=== PATIENT | female | born 1995 | race Caucasian/White ===

== ENCOUNTER → 2017-03-07 | Outpatient (CLI) | payer OTHER ==
[2017-03-11 10:27] LABS: CHLAMYDIA TRACH RNA*** DETECTED (NOT DETECTED); GC (NEIS GONORRHOEAE)RNA** NOT DETECTED (NOT DETECTED)
== END | disposition home or self-care (01) ==
LOC: C.LABSPEC 13:28
PROVIDERS: ATTEND Obstetrics & Gynecology
DX: Z01.419 Encounter for gynecological examination (general) (routine) without abnormal findings (principal)

== ENCOUNTER → 2017-03-07 | Outpatient (CLI) | payer OTHER | END | disposition home or self-care (01) | LOC: C.PAPS 13:55 | PROVIDERS: ATTEND Obstetrics & Gynecology | DX: Z01.419 Encounter for gynecological examination (general) (routine) without abnormal findings (principal) ==

== ENCOUNTER → 2017-04-10 | Outpatient (CLI) | payer OTHER ==
[2017-04-10 17:55] LABS: URINE APPEARANCE CLOUDY (CLEAR); URINE BILIRUBIN NEG (NEG); URINE COLOR DK YELLOW; URINE EPITHELIAL CELL AUTO >30 /lpf (0-5); URINE NITRITE NEG (NEG); URINE SPECIFIC GRAVITY 1.022 (1.000-1.030); UROBILINOGEN NEG (NEG)
[2017-04-10 18:11] LABS: MANUAL MICROSCOPIC REQUIRED? NO; REVIEW REQ? YES
[2017-04-13 01:43] LABS: CHLAMYDIA TRACH RNA*** NOT DETECTED (NOT DETECTED); GC (NEIS GONORRHOEAE)RNA** NOT DETECTED (NOT DETECTED)
== END | disposition home or self-care (01) ==
LOC: C.LABPBG 10:41
PROVIDERS: ATTEND Family Medicine
DX: Z86.19 Personal history of other infectious and parasitic diseases (principal); R35.0 Frequency of micturition; R39.89 Other symptoms and signs involving the genitourinary system

== ENCOUNTER 2017-04-15 12:58 | Inpatient (IN) | payer OTHER ==
[~2017-04-15] VITALS: Ht 167.6 cm; Wt 62.4 kg
[2017-04-15] MEDS ORDERED: BCPILLS PO (13:18)
[2017-04-15] MEDS ORDERED: CIPR1TAB10 PO (13:18)
[2017-04-15] MEDS ORDERED: KETOROLAC TROMETHAMINE 30 MG/ML VIAL IV STA (13:35)
[2017-04-15] MEDS ORDERED: ONDANSETRON INJ 2 MG/ML 2 ML VIAL IV STA (13:35)
[2017-04-15 13:51] LABS: BASO % 0.2 %; BASO ABS # 0.03 K/uL (0-0.2); COMPLETE YES; EOS % 0.1 %; HEMATOCRIT 39.5 % (37-47); IG% 0.3 %; LYMPH % 8.9 %; LYMPH ABS # 1.17 K/uL (1.2-3.4); MEAN CELL VOLUME 91.2 fL (80-100); MEAN CORPUSCULAR HEMOGLOBIN 32.3 pg (25-34); MEAN CORPUSCULAR HGB CONC 35.4 g/dl (32-36); MEAN PLATELET VOLUME 9.7 fL (7.4-10.4); MONO % 8.6 %; NEUT % 81.9 %; PLATELET COUNT 272 K/uL (130-400); RED BLOOD COUNT 4.33 M/uL (4.2-5.4); WHITE BLOOD COUNT 13.08 K/uL (4.8-10.8)
[2017-04-15 14:01] LABS: URINE APPEARANCE CLEAR (CLEAR); URINE BILIRUBIN NEG (NEG); URINE COLOR YELLOW; URINE EPITHELIAL CELL AUTO >30 /lpf (0-5); URINE NITRITE NEG (NEG); URINE SPECIFIC GRAVITY 1.012 (1.000-1.030); UROBILINOGEN NEG (NEG); ZZUR CULT IF INDIC CLEAN CATCH YES
[2017-04-15 14:08] LABS: BUN/CREATININE RATIO 12.7 (10-20); CALCIUM 9.3 mg/dl (8.5-10.1); CREATININE 2.45 mg/dl (0.60-1.20); MANUAL MICROSCOPIC REQUIRED? NO; POTASSIUM 3.7 mmol/L (3.5-5.1); REVIEW REQ? YES
[2017-04-15] MEDS ORDERED: CEFTRIAXONE SOD INJ 1 GM ADDVIAL IV STA (14:56)
--- NOTE | 2017-04-15 15:30 | DIAGNOSTIC IMAGING REPORT ---
ABD/PELVIS NO IV OR ORAL CONT CLINICAL HISTORY: 21 years-old Female presenting with Cr 2.45, bilateral flank pain, nausea and vomiting. TECHNIQUE: Multidetector CT of the abdomen and pelvis was performed without the use of intravenous contrast. IV contrast: None. A dose lowering technique was used consistent with the principles of ALARA (as low as reasonably achievable). COMPARISON: None. CT DOSE (mGy.cm): The estimated cumulative dose is 329.78 mGy.cm. FINDINGS: Ssds Mk 2 Advanced Operator topogram: Unremarkable. Lung bases: Lungs and pleural spaces clear. Normal heart size. No pericardial or pleural effusion. Liver: Normal morphology. Normal density. Biliary: No gross biliary ductal dilatation allowing for noncontrast technique. Normal gallbladder. Pancreas: Mild parenchymal atrophy. Spleen: Noncontrast. Splenule noted. Adrenal glands: Normal noncontrast appearance. Kidneys and ureters: Normal noncontrast appearance of the renal parenchyma. Mild perinephric fat stranding, right greater than left. Few punctate foci of vague hyperdensity in the left kidney may suggest developing renal calculi (for example series 3 image 116). No hydronephrosis. Ureters are nondilated, poorly visualized in their distal portions. Bladder: Mild circumferential bladder wall thickening. No perivesicular fat stranding. Multiple pelvic phleboliths. Pelvic organs: Uterus and ovaries normal. Bowel: Normal appendix. No bowel obstruction. Peritoneal cavity: No free fluid or intraperitoneal gas. Lymph nodes: No gross lymphadenopathy allowing for noncontrast technique. Vasculature: Normal noncontrast appearance. Abdominal wall: Normal. Musculoskeletal: Normal. IMPRESSION: 1. Mild perinephric fat stranding is unexpected in a patient of this age. This could relate to aggressive volume resuscitation, although pyelonephritis could also have this appearance. Suggestion of mild circumference of bladder wall thickening. Correlate with urinalysis to exclude infection. 2. No nephrolithiasis at this time, although there is suggestion of a few punctate foci of vague hyperdensity in the left kidney that may suggest developing renal calculi. No hydronephrosis. Electronically signed by: Gerber Molina M.D. 04/15/2017 3:28 PM Dictated Date/Time: 04/15/2017 3:24 PM
--- NOTE | 2017-04-15 15:31 | DIAGNOSTIC IMAGING REPORT ---
RETROPERITONEAL COMPLETE CLINICAL HISTORY: 21 years-old Female presenting with Bilateral flank pain. TECHNIQUE: Real-time grayscale and limited color Doppler ultrasound imaging of the kidneys and bladder was performed. COMPARISON: None. FINDINGS: Right kidney: Normal echogenicity. Right kidney measures 11 cm. No hydronephrosis. Small amount of free fluid adjacent to the lower pole of the right kidney. No commencing evidence of calculus or mass. Normal perfusion. Left kidney: Normal echogenicity. Left kidney measures 11 cm. No hydronephrosis. No convincing evidence of calculus or mass. Normal perfusion. Bladder: Mild circumferential bladder wall thickening suggested, allowing for underdistention. Bilateral ureteral jets not visualized. Other: None. IMPRESSION: 1. Small amount of fluid adjacent to the right kidney. Especially given the presence of mild circumference of bladder wall thickening, this could suggest pyelonephritis in the appropriate clinical setting. Correlate with urinalysis. Electronically signed by: Gerber Molina M.D. 04/15/2017 3:30 PM Dictated Date/Time: 04/15/2017 3:29 PM
--- NOTE | 2017-04-15 17:07 | EMERGENCY ROOM VISIT NOTE ---
History First contact with patient: 13:17 Chief Complaint: FLANK PAIN Stated Complaint: LOW BACK PAIN, NAUSEA, VOMITING History of Present Illness The patient is a 21 year old female who presents to the Emergency Room with complaints of bilateral flank pain, nausea and vomiting. The patient reports that she has been dealing with recurrent urinary tract infections over the past 2-3 months the patient was initially seen at the [facility] urgent care center on 03/22/17, with culture showing an Escherichia coli infection. She was started on Bactrim DS antibiotics. When the patient developed recurrent symptoms within a week, she was provided a prescription for another round of Bactrim DS antibiotics. She was then seen by her PCP and provided a prescription for Cipro. She had a repeat culture performed on 04/10/17 that was normal. She now reports recurrent discomfort, rated a 10 out of 10. She has taken ibuprofen for the pain, however vomited her medicine. The patient is sexually active, and denies any recent dyspareunia or vaginal discharge. She has not noticed any blood in the urine. No diarrhea or constipation. She denies any pain extending into the left lower or right lower quadrants. She denies any prior history of kidney disease, kidney stones or pyelonephritis. The patient denies . Last menstruation was 3 weeks ago, and denies any history of dysmenorrhea. Review of Systems HEENT: Denies dizziness, visual problems, hearing loss, tinnitus. Denies difficulty swallowing or oral lesions. PULMONARY: Denies cough, shortness of breath, sputum production or hemoptysis. CARDIOVASCULAR: Denies chest pain, palpitations, dyspnea on exertion, orthopnea or peripheral edema. GASTROINTESTINAL: Denies diarrhea or constipation, otherwise see history of present illness. GENITOURINARY: Reports dysuria, frequency, urgency and nausea/vomiting. NEUROLOGIC: Denies history of epilepsy, CVA, TIA or chronic headaches. MUSCULOSKELETAL: Denies history of joint tenderness/swelling. SKIN: Denies rashes or lesions. PSYCHIATRIC: Denies history of depression or mental illness. ENDOCRINE: Denies history of diabetes or thyroid disorders. Past Medical/Surgical History Medical Problems: (1) SALMA (acute kidney injury) (2) No significant past medical history Surgical Problems: (1) No history of previous surgery Family History FH: diabetes mellitus FH: heart disease FH: hypertension Social History Smoking Status: Never Smoker Alcohol Use: none Marital Status: single Housing Status: lives with family Occupation Status: employed Current/Historical Medications Scheduled Control Pills ( Control Pills), 1 TAB PO DAILY Ciprofloxacin Hcl (Cipro), 500 MG PO BID Physical Exam Vital Signs Date Time Temp Pulse Resp B/P (MAP) Pulse Ox O2 Delivery O2 Flow Rate FiO2 04/15/17 13:04 36.8 92 18 150/81 99 Room Air Physical Exam CONSTITUTIONAL: Healthy and well nourished. Alert and oriented X 3 with positive affect. Patient does not appear acutely ill or toxic. HEENT: Normocephalic, atraumatic. Pupils equal, round and reactive. No conjunctival injection or scleral icterus. NECK: Full active range of motion without discomfort. RESPIRATORY: Clear to auscultation bilaterally with no wheezing, crackles, rhonchi or stridor. CARDIOVASCULAR: Regular rate and rhythm with no murmurs, rubs or gallops. GASTROINTESTINAL: Bowel sounds present in all quadrants. Should has a mildly positive CVA tenderness, left worse than right. Negative McBurney's point tenderness. No abdominal rigidity, guarding or rebound. MUSCULOSKELETAL: Full range of motion of all joints without discomfort. INTEGUMENTARY: No rash or other significant dermatologic conditions noted. HEMATOLOGIC: No ecchymosis or petechiae noted. NEUROLOGIC: No focal neurologic deficits noted. Medical Decision & Procedures ER Provider Diagnostic Interpretation: Retroperitoneal ultrasound shows the following: RETROPERITONEAL COMPLETE CLINICAL HISTORY: 21 years-old Female presenting with Bilateral flank pain. TECHNIQUE: Real-time grayscale and limited color Doppler ultrasound imaging of the kidneys and bladder was performed. COMPARISON: None. FINDINGS: Right kidney: Normal echogenicity. Right kidney measures 11 cm. No hydronephrosis. Small amount of free fluid adjacent to the lower pole of the right kidney. No commencing evidence of calculus or mass. Normal perfusion. Left kidney: Normal echogenicity. Left kidney measures 11 cm. No hydronephrosis. No convincing evidence of calculus or mass. Normal perfusion. Bladder: Mild circumferential bladder wall thickening suggested, allowing for underdistention. Bilateral ureteral jets not visualized. Other: None. IMPRESSION: 1. Small amount of fluid adjacent to the right kidney. Especially given the presence of mild circumference of bladder wall thickening, this could suggest pyelonephritis in the appropriate clinical setting. Correlate with urinalysis. Noncontrast CT of the abdomen and pelvis does not show any obstructing calculi. Radiologist report is as follows: ABD/PELVIS NO IV OR ORAL CONT CLINICAL HISTORY: 21 years-old Female presenting with Cr 2.45, bilateral flank pain, nausea and vomiting. TECHNIQUE: Multidetector CT of the abdomen and pelvis was performed without the use of intravenous contrast. IV contrast: None. A dose lowering technique was used consistent with the principles of ALARA (as low as reasonably achievable). COMPARISON: None. CT DOSE (mGy.cm): The estimated cumulative dose is 329.78 mGy.cm. FINDINGS: Transfer Driver topogram: Unremarkable. Lung bases: Lungs and pleural spaces clear. Normal heart size. No pericardial or pleural effusion. Liver: Normal morphology. Normal density. Biliary: No gross biliary ductal dilatation allowing for noncontrast technique. Normal gallbladder. Pancreas: Mild parenchymal atrophy. Spleen: Noncontrast. Splenule noted. Adrenal glands: Normal noncontrast appearance. Kidneys and ureters: Normal noncontrast appearance of the renal parenchyma. Mild perinephric fat stranding, right greater than left. Few punctate foci of vague hyperdensity in the left kidney may suggest developing renal calculi (for example series 3 image 116). No hydronephrosis. Ureters are nondilated, poorly visualized in their distal portions. Bladder: Mild circumferential bladder wall thickening. No perivesicular fat stranding. Multiple pelvic phleboliths. Pelvic organs: Uterus and ovaries normal. Bowel: Normal appendix. No bowel obstruction. Peritoneal cavity: No free fluid or intraperitoneal gas. Lymph nodes: No gross lymphadenopathy allowing for noncontrast technique. Vasculature: Normal noncontrast appearance. Abdominal wall: Normal. Musculoskeletal: Normal. IMPRESSION: 1. Mild perinephric fat stranding is unexpected in a patient of this age. This could relate to aggressive volume resuscitation, although pyelonephritis could also have this appearance. Suggestion of mild circumference of bladder wall thickening. Correlate with urinalysis to exclude infection. 2. No nephrolithiasis at this time, although there is suggestion of a few punctate foci of vague hyperdensity in the left kidney that may suggest developing renal calculi. No hydronephrosis. Laboratory Results Test 04/15/17 13:40 Prothrombin Time 10.7 SECONDS (9.0-12.0) Prothromb Time International Ratio 1.0 (0.9-1.1) Activated Partial Thromboplast Time 27.5 SECONDS (21.0-31.0) Partial Thromboplastin Ratio 1.1 Urine Color YELLOW Urine Appearance CLEAR (CLEAR) Urine pH 6.0 (4.5-7.5) Urine Specific [place] 1.012 (1.000-1.030) Urine Protein 3+ (NEG) Urine Glucose (UA) NEG (NEG) Urine Ketones NEG (NEG) Urine Occult Blood 3+ (NEG) Urine Nitrite NEG (NEG) Urine Bilirubin NEG (NEG) Urine Urobilinogen NEG (NEG) Urine Leukocyte Esterase TRACE (NEG) Urine WBC (Auto) 10-30 /hpf (0-5) Urine RBC (Auto) >30 /hpf (0-4) Urine Hyaline Casts (Auto) 5-10 /lpf (0-5) Urine Epithelial Cells (Auto) >30 /lpf (0-5) Urine Bacteria (Auto) 1+ (NEG) Urine Renal Epithelial Cells 0-5 /lpf (0-5) Urine Test NEG (NEG) Est Creatinine Clear Calc Drug Dose 33.4 ml/min Direct Bilirubin 0.1 mg/dl (0-0.2) Total Creatine Kinase 101 U/L (26-192) Lipase 134 U/L (73-393) The above labs were reviewed. Creatinine is 2.45, BUN 31. White count is over 13,000. LFTs and lipase are normal. Urinalysis shows a contaminated sample. Urine cultures are pending. Medications Administered Medications (Trade) Dose Ordered Sig/Peter Route Start Time Stop Time Status Last Admin Dose Admin Ketorolac Tromethamine (Toradol Inj) 30 mg NOW STAT IV 04/15/17 13:35 04/15/17 13:39 DC 04/15/17 13:50 30 MG Ondansetron HCl (Zofran Inj) 4 mg NOW STAT IV 04/15/17 13:35 04/15/17 13:39 DC 04/15/17 13:50 4 MG Ceftriaxone Sodium (Rocephin Inj) 1 gm NOW STAT IV 04/15/17 14:56 12/25/17 14:57 DC 04/15/17 15:19 1 GM Acetaminophen (Tylenol Tab) 650 mg Q4H PRN PO 04/15/17 18:15 05/15/17 18:14 04/15/17 21:12 650 MG ED Course Patient history and physical exam were performed. Nurse's notes were reviewed. Vital signs were reviewed and were normal. The patient was initially administered IV Toradol and Zofran for pain and nausea. She refused any stronger analgesics. Review of labs shows an elevated BUN and creatinine, as well as a mild leukocytosis. LFTs and lipase are normal. Urinalysis shows a contaminated sample. Urine was negative. Retroperitoneal ultrasound is summarized in the previous Diagnostic Interpretation section. Findings were discussed with Dr. Root, ED attending physician who also suggested performing a noncontrast CT to rule out further obstructive uropathy. The CT scan was performed and otherwise normal. The patient was administered Rocephin 1 g IV infusion. Consultation was then placed with the [facility] hospitalist service. Please see their dictation for further treatment and final disposition. Medical Decision Patient presents to the emergency department with complaint of bilateral flank pain, nausea and vomiting. The patient has had recurrent urinary tract infections for the past 2-3 months. Measuring studies today are not suggestive of an obstructive uropathy. Differentials considered included acute renal failure, acute tubular necrosis, pyelonephritis obstructive uropathy and other intra-abdominal etiologies. Based on history, I do not suspect PID or pelvic referred pain. I also do not suspect cardiopulmonary referred pain. Medication Reconcilliation Current Medication List: was personally reviewed by me Blood Pressure Screening Patient's blood pressure: Normal blood pressure Impression Primary Impression: SALMA (acute kidney injury) Additional Impression: Pyelonephritis Departure Information Referrals Kate Vo DO (PCP) Patient Instructions My [facility] Health Problem Qualifiers
[2017-04-15] MEDS ORDERED: ACETAMINOPHEN 325 MG TAB PO PRN (18:15)
[2017-04-15] MEDS ORDERED: MAGNESIUM HYDROXIDE SUSP 30 ML UDC PO PRN (18:15)
[2017-04-15] MEDS ORDERED: ONDANSETRON INJ 2 MG/ML 2 ML VIAL IV PRN (18:15)
[2017-04-15] MEDS ORDERED: ALUMINUM/MAGNESIUM/SIMETH (MAALOX MAX) 30 ML UDC PO PRN (18:15)
[2017-04-15] MEDS ORDERED: FAMOTIDINE IV INJ 20 MG in DEXTROSE 5% 100ML 100 ML IV SCH (18:30)
--- NOTE | 2017-04-15 18:35 | History and Physical ---
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 Patient had a new boyfriend that she started seeing within the last 4 months. Started 3 months ago to have recurrent urinary tract infections with symptoms suggestive of cystitis. Most recently had a UTI in the beginning of March was treated with Bactrim. After that she return to her PCP on April 10 and was giving Cipro. Yesterday patient had some occult consumption and was vomiting aggressively overnight. Today she presented to our ED with bilateral costovertebral angle pain, burning sensation in the urine, increased frequency of urination. Urine function test showed creatinine more than 2 representing acute kidney injury, no history of kidney disease in the past Family History FH: diabetes mellitus FH: heart disease FH: hypertension Social History Smoking Status: Never Smoker Marital Status: single Occupational Status: employed Allergies Coded Allergies: No Known Allergies (Unverified , 04/15/17) Home Medications Scheduled Control Pills ( Control Pills), 1 TAB PO DAILY Ciprofloxacin Hcl (Cipro), 500 MG PO BID Review of Systems Constitutional: + fever, + chills, No sweats, No weight loss, No weakness, No fatigue, No problem reported Eyes: No worsening of vision, No eye pain, No redness, No discharge, No diplopia, No problem reported ENT: No hearing loss, No unusual epistaxis, No nasal symptoms, No sore throat, No tinnitus, No dental problems, No trouble swallowing, No problem reported Respiratory: No cough, No sputum, No wheezing, No shortness of breath, No dyspnea on exertion, No dyspnea at rest, No hemoptysis, No problem reported Cardiovascular: No chest pain, No orthopnea, No PND, No edema, No claudication , No palpitations, No problem reported Abdomen: No pain, No nausea, No vomiting, No diarrhea, No constipation, No GI bleeding, No problem reported Musculoskeletal: No joint pain, No muscle pain, No swelling, No calf pain, No problem reported Genitourinary - Female: + dysuria, + urinary frequency, + urinary urgency, No urinary incontinence, No urinary retention, No hematuria, No dysmenorrhea, No menorrhagia, No metrorrhagia, No rash, No vaginal bleeding, No vaginal discharge , No vaginal itching, No vulvodynia, No , No problem reported Neurologic: No memory loss, No paralysis, No weakness, No numbness/tingling, No vertigo, No balance problems, No problem reported Psychiatric: No depression symptoms, No anhedonism, No anxiety, No insomnia, No substance abuse, No problem reported Endocrine: No fatigue, No excessive thirst, No excessive urination, No problem reported Hematologic / Lymphatic: No abnormal bleeding/bruising, No clotting problems, No swollen lymph nodes, No night sweats, No problem reported Integumentary: No rash, No itch, No new/changing skin lesions, No color change , No bleeding, No problem reported Allergic / Immunologic: No environmental allergies, No seasonal allergies, No pet sensitivities, No food allergies, No hives, No frequent infections, No poor healing, No prolonged convalescence, No problem reported Physical Exam Vital Signs Date Time Temp Pulse Resp B/P (MAP) Pulse Ox O2 Delivery O2 Flow Rate FiO2 04/15/17 13:04 36.8 92 18 150/81 99 Room Air General Appearance: WD/WN, no apparent distress Head: normocephalic, atraumatic Eyes: normal inspection, EOMI ENT: normal ENT inspection, hearing grossly normal Neck: supple Respiratory/Chest: chest non-tender, lungs clear, normal breath sounds, no respiratory distress, no accessory muscle use Cardiovascular: regular rate, rhythm, no edema, no gallop, no JVD, no murmur Abdomen/GI: normal bowel sounds, non tender, soft, no organomegaly, no pulsatile mass Back: normal inspection, + left CVA tenderness, + right CVA tenderness Extremities/Musculoskelatal: normal inspection, no calf tenderness, normal capillary refill, no pedal edema Neurologic/Psych: civil preparedness officer II-XII nml as tested, no motor/sensory deficits, alert, normal mood/affect, normal reflexes, oriented x 3 Skin: normal color, warm/dry, no rash Diagnostics Laboratory Results Results Past 24 Hours Test 04/15/17 13:40 Range/Units White Blood Count 13.08 4.8-10.8 K/uL Red Blood Count 4.33 4.2-5.4 M/uL Hemoglobin 14.0 12.0-16.0 g/dL Hematocrit 39.5 37-47 % Mean Corpuscular Volume 91.2 80-100 fL Mean Corpuscular Hemoglobin 32.3 25-34 pg Mean Corpuscular Hemoglobin Concent 35.4 32-36 g/dl Platelet Count 272 130-400 K/uL Mean Platelet Volume 9.7 7.4-10.4 fL Neutrophils (%) (Auto) 81.9 % Lymphocytes (%) (Auto) 8.9 % Monocytes (%) (Auto) 8.6 % Eosinophils (%) (Auto) 0.1 % Basophils (%) (Auto) 0.2 % Neutrophils # (Auto) 10.71 1.4-6.5 K/uL Lymphocytes # (Auto) 1.17 1.2-3.4 K/uL Monocytes # (Auto) 1.12 0.11-0.59 K/uL Eosinophils # (Auto) 0.01 0-0.5 K/uL Basophils # (Auto) 0.03 0-0.2 K/uL RDW Standard Deviation 40.6 36.4-46.3 fL RDW Coefficient of Variation 12.1 11.5-14.5 % Immature Granulocyte % (Auto) 0.3 % Immature Granulocyte # (Auto) 0.04 0.00-0.02 K/uL Urine Color YELLOW Urine Appearance CLEAR CLEAR Urine pH 6.0 4.5-7.5 Urine Specific [place] 1.012 1.000-1.030 Urine Protein 3+ NEG Urine Glucose (UA) NEG NEG Urine Ketones NEG NEG Urine Occult Blood 3+ NEG Urine Nitrite NEG NEG Urine Bilirubin NEG NEG Urine Urobilinogen NEG NEG Urine Leukocyte Esterase TRACE NEG Urine WBC (Auto) 10-30 0-5 /hpf Urine RBC (Auto) >30 0-4 /hpf Urine Hyaline Casts (Auto) 5-10 0-5 /lpf Urine Epithelial Cells (Auto) >30 0-5 /lpf Urine Bacteria (Auto) 1+ NEG Urine Renal Epithelial Cells 0-5 0-5 /lpf Urine Test NEG NEG Sodium Level 138 136-145 mmol/L Potassium Level 3.7 3.5-5.1 mmol/L Chloride Level 104 98-107 mmol/L Carbon Dioxide Level 23 21-32 mmol/L Anion Gap 11.0 3-11 mmol/L Blood Urea Nitrogen 31 7-18 mg/dl Creatinine 2.45 0.60-1.20 mg/dl Est Creatinine Clear Calc Drug Dose 33.4 ml/min Estimated GFR () 31.1 Estimated GFR (Non- 26.9 BUN/Creatinine Ratio 12.7 10-20 Random Glucose 113 70-99 mg/dl Calcium Level 9.3 8.5-10.1 mg/dl Total Bilirubin 0.6 0.2-1 mg/dl Direct Bilirubin 0.1 0-0.2 mg/dl Aspartate Amino Transf (AST/SGOT) 19 15-37 U/L Alanine Aminotransferase (ALT/SGPT) 21 12-78 U/L Alkaline Phosphatase 50 45-117 U/L Total Protein 7.9 6.4-8.2 gm/dl Albumin 4.1 3.4-5.0 gm/dl Lipase 134 73-393 U/L Microbiology Results 04/15/17 Urine Culture, Received Pending Impression Assessment and Plan 21-year-old female presented to the ED with recurrent UTI and acute kidney injury. Assessment Recurrent UTI / pyelonephritis present on admission, timeline is associated with starting a new relationship, suspecting postcoital UTI Sepsis present on admission secondary to above Acute kidney injury likely secondary to decrease oral intake and vomiting/ ATN Plan Discussed with patient the differential diagnosis of her condition with her boyfriend in the room. Suggested considering postcoital UTI, and post intercourse antibiotic suppression Also suggested follow-up with urologist as an outpatient to rule out any anatomical predisposing factor, patient acknowledged Suggested outpatient vitamin C/cranberry tablet despite of conflicting data, patient agreed that it will not to harm to use it and see if it will decrease frequency of episodes Start patient on generous IV fluid hydration Monitor renal function closely Start patient on ceftriaxone Lactobacillus for C. difficile prophylaxis Heparin for DVT prophylaxis If renal function would not improve rapidly by tomorrow, then consider rn long term care consult and checking eosinophilia in the urine, possibly interstitial nephritis secondary to antibiotics We'll check CPK rule out rhabdomyolysis since she was drinking yesterday VTE Prophylaxis VTE Risk Assessment Done? Y/N: Yes Risk Level: Moderate
[2017-04-15 19:31] VITALS: BP 130/85; PULSE 85; TEMP 36.4; O2SAT 99
[2017-04-15] MEDS ORDERED: D5W AND NSS 1,000 ML IV SCH ×2 (20:00→20:15)
[2017-04-15] MEDS: FAMOTIDINE IV INJ 20 MG in SYRINGE 3 ML IV SCH (20:10)
[2017-04-15 20:13] LABS: PARTIAL THROMBOPLASTIN RATIO 1.1; PROTHROMBIN TIME (PATIENT) 10.7 SECONDS (9.0-12.0)
[2017-04-15 20:47] VITALS: BP 130/85; PULSE 85; TEMP 36.4; O2SAT 99; Ht 167.6 cm; Wt 62.4 kg
[2017-04-15] MEDS: HEPARIN SOD 5000 UNIT/0.5 ML CARP SQ SCH (21:00)
[2017-04-15] MEDS: SODIUM CHLORIDE 0.9% 1000ML 1,000 ML IV SCH (22:17)
[2017-04-15] MEDS ORDERED: NURSING VERBAL MED ORDER ONE (23:30)
[2017-04-15] MEDS ORDERED: MoRPHine SULFATE 2 MG/ML CARP IV STA (23:31)
[2017-04-16 00:10] VITALS: BP 122/80; PULSE 84; TEMP 36.7; O2SAT 98
[2017-04-16] MEDS: SODIUM CHLORIDE 0.9% 1000ML 1,000 ML IV SCH ×3 (06:22→20:19)
[2017-04-16 06:48] LABS: BASO % 0.3 %; BASO ABS # 0.02 K/uL (0-0.2); COMPLETE YES; EOS % 1.4 %; IG% 0.1 %; LYMPH % 24.1 %; LYMPH ABS # 1.91 K/uL (1.2-3.4); MEAN CELL VOLUME 92.7 fL (80-100); MEAN CORPUSCULAR HGB CONC 34.5 g/dl (32-36); MEAN PLATELET VOLUME 9.9 fL (7.4-10.4); MONO % 10.7 %; NEUT % 63.4 %; PLATELET COUNT 182 K/uL (130-400); RED BLOOD COUNT 3.56 M/uL (4.2-5.4); WHITE BLOOD COUNT 7.93 K/uL (4.8-10.8)
[2017-04-16 07:25] LABS: BUN/CREATININE RATIO 11.9 (10-20); CALCIUM 7.4 mg/dl (8.5-10.1); CREATININE 2.38 mg/dl (0.60-1.20); MAGNESIUM 1.8 mg/dl (1.8-2.4)
[2017-04-16 07:53] LABS: ESTIMATED AVERAGE GLUCOSE 97 mg/dl; HA1C FLAG Normal (Normal)
[2017-04-16] MEDS: LACTOBACILLUS ACIDOPHILUS 1 GM PACK PO SCH ×3 (08:01→17:22)
[2017-04-16] MEDS: HEPARIN SOD 5000 UNIT/0.5 ML CARP SQ SCH ×2 (08:01→20:20)
[2017-04-16] MEDS: FAMOTIDINE IV INJ 20 MG in SYRINGE 3 ML IV SCH ×2 (08:01→20:19)
[2017-04-16 08:30] VITALS: BP 117/78; PULSE 71; TEMP 36.7; O2SAT 99
[2017-04-16] MEDS ORDERED: MoRPHine SULFATE 2 MG/ML CARP IV PRN (08:45)
[2017-04-16] MEDS ORDERED: CEFTRIAXONE SOD INJ 1 GM in DEXTROSE 5% ADD-VANTAGE 50ML 50 ML IV SCH (15:00)
[2017-04-16 15:30] VITALS: BP 132/86; PULSE 73; TEMP 36.8; O2SAT 100
--- NOTE | 2017-04-16 16:58 | Hospitalist Progress Note ---
Hospitalist Progress Note Date of Service Apr 16, 2017. (Lilibeth Kingston, DEWEYC) Subjective Pt evaluation today including: conversation w/ patient, conversation w/ family (boyfriend), physical exam, chart review, lab review, review of studies, review of inpatient medication list Patient seen and evaluated. No acute events overnight. Reporting feeling about the same with b/l flank pain with R>L. Requesting Kpad. States pain is worse with laying down and improves with sitting up. Cr is slowly improving. Went from 2.45 to 2.38 and will increase fluids. Leukocytosis resolved. States she went to [facility] in the past and states that she wasn't cultured for some UTIs and just treated with Bactrim. She states she went back with similar issues and was reported she was cultured for E. coli. Constitutional: No fever, No chills Respiratory: No shortness of breath Cardiovascular: No chest pain Abdomen: + pain (intermittent radiation of R flank pain to R groin/ suprapubic region), No nausea, No vomiting, No diarrhea, No constipation, No GI bleeding Musculoskeletal: + problem reported (B/L flank pain with R > L) Female : + problem reported (bladder "fullness") Heme: No abnormal bleeding/bruising Skin: No rash (Lilibeth Kingston, DEWEYC) Medications Current Inpatient Medications Medications (Trade) Dose Ordered Sig/Peter Route Start Time Stop Time Status Last Admin Dose Admin Acetaminophen (Tylenol Tab) 650 mg Q4H PRN PO 04/15/17 18:15 05/15/17 18:14 04/15/17 21:12 650 MG Al Hydrox/Mg Hydrox/Simethicone (Maalox Max Susp) 15 ml Q4H PRN PO 04/15/17 18:15 05/15/17 18:14 Magnesium Hydroxide (Milk Of Magnesia Susp) 30 ml Q6H PRN PO 04/15/17 18:15 05/15/17 18:14 Ondansetron HCl (Zofran Inj) 4 mg Q6H PRN IV 04/15/17 18:15 05/15/17 18:14 Heparin Sodium (Porcine) (Heparin Sq 5000 Unit/0.5ml) 5,000 unit Q12H SQ 04/15/17 21:00 05/15/17 20:59 Sodium Chloride 1,000 ml @ 150 mls/hr Q6H40M IV 04/15/17 22:00 05/15/17 21:59 04/16/17 14:19 150 MLS/HR Ceftriaxone Sodium 1 gm/ Dextrose 50 ml @ 100 mls/hr Q24H IV 04/16/17 15:00 04/25/17 14:59 04/16/17 14:43 100 MLS/HR Lactobacillus Acidophilus (Lactinex Granules Pack) 1 gm TIDM PO 04/16/17 08:00 05/16/17 07:59 04/16/17 11:49 1 GM Famotidine 20 mg/ Syringe 5 ml @ 2.5 mls/min Q12H IV 04/15/17 20:00 05/15/17 19:59 04/16/17 08:01 2.5 MLS/MIN Morphine Sulfate (MoRPHine SULFATE INJ) 1 mg Q3H PRN IV 04/16/17 08:45 04/30/17 08:44 (Lilibeth Kingston PA-C) Objective Vital Signs Date Time Temp Pulse Resp B/P (MAP) Pulse Ox O2 Delivery O2 Flow Rate FiO2 04/16/17 08:30 Room Air 04/16/17 08:30 36.7 71 18 117/78 (91) 99 Room Air 04/16/17 00:10 36.7 84 16 122/80 (94) 98 Room Air 04/16/17 00:00 Room Air 04/15/17 20:47 36.4 85 16 130/85 99 Room Air 04/15/17 19:31 36.4 85 16 130/85 (100) 99 Room Air 04/15/17 19:03 36.8 75 18 130/76 98 04/15/17 18:40 75 18 130/76 98 Room Air 04/15/17 13:04 36.8 92 18 150/81 99 Room Air (Lilibeth Kingston PA-C) Physical Exam General Appearance: WD/WN, no apparent distress Eyes: sclerae normal ENT: hearing grossly normal Neck: supple, no JVD, trachea midline Respiratory/Chest: lungs clear, normal breath sounds, no respiratory distress, no accessory muscle use Cardiovascular: regular rate, rhythm, no gallop, no murmur Abdomen: normal bowel sounds, non tender, soft, + pertinent finding (+ CVA tenderness b/l - reporting R > L) Extremities: no pedal edema, no calf tenderness Neurologic/Psychiatric: alert, oriented x 3 Skin: normal color, warm/dry (Lilibeth Kingston, DEWEYC) Laboratory Results Last 24 Hours Test 04/15/17 13:40 04/16/17 06:17 White Blood Count 13.08 K/uL 7.93 K/uL Red Blood Count 4.33 M/uL 3.56 M/uL Hemoglobin 14.0 g/dL 11.4 g/dL Hematocrit 39.5 % 33.0 % Mean Corpuscular Volume 91.2 fL 92.7 fL Mean Corpuscular Hemoglobin 32.3 pg 32.0 pg Mean Corpuscular Hemoglobin Concent 35.4 g/dl 34.5 g/dl Platelet Count 272 K/uL 182 K/uL Mean Platelet Volume 9.7 fL 9.9 fL Neutrophils (%) (Auto) 81.9 % 63.4 % Lymphocytes (%) (Auto) 8.9 % 24.1 % Monocytes (%) (Auto) 8.6 % 10.7 % Eosinophils (%) (Auto) 0.1 % 1.4 % Basophils (%) (Auto) 0.2 % 0.3 % Neutrophils # (Auto) 10.71 K/uL 5.03 K/uL Lymphocytes # (Auto) 1.17 K/uL 1.91 K/uL Monocytes # (Auto) 1.12 K/uL 0.85 K/uL Eosinophils # (Auto) 0.01 K/uL 0.11 K/uL Basophils # (Auto) 0.03 K/uL 0.02 K/uL RDW Standard Deviation 40.6 fL 42.1 fL RDW Coefficient of Variation 12.1 % 12.4 % Immature Granulocyte % (Auto) 0.3 % 0.1 % Immature Granulocyte # (Auto) 0.04 K/uL 0.01 K/uL Prothrombin Time 10.7 SECONDS Prothromb Time International Ratio 1.0 Activated Partial Thromboplast Time 27.5 SECONDS Partial Thromboplastin Ratio 1.1 Urine Color YELLOW Urine Appearance CLEAR Urine pH 6.0 Urine Specific [place] 1.012 Urine Protein 3+ Urine Glucose (UA) NEG Urine Ketones NEG Urine Occult Blood 3+ Urine Nitrite NEG Urine Bilirubin NEG Urine Urobilinogen NEG Urine Leukocyte Esterase TRACE Urine WBC (Auto) 10-30 /hpf Urine RBC (Auto) >30 /hpf Urine Hyaline Casts (Auto) 5-10 /lpf Urine Epithelial Cells (Auto) >30 /lpf Urine Bacteria (Auto) 1+ Urine Renal Epithelial Cells 0-5 /lpf Urine Test NEG Sodium Level 138 mmol/L 140 mmol/L Potassium Level 3.7 mmol/L 4.0 mmol/L Chloride Level 104 mmol/L 111 mmol/L Carbon Dioxide Level 23 mmol/L 23 mmol/L Anion Gap 11.0 mmol/L 6.0 mmol/L Blood Urea Nitrogen 31 mg/dl 28 mg/dl Creatinine 2.45 mg/dl 2.38 mg/dl Est Creatinine Clear Calc Drug Dose 33.4 ml/min 34.4 ml/min Estimated GFR () 31.1 32.2 Estimated GFR (Non- 26.9 27.8 BUN/Creatinine Ratio 12.7 11.9 Random Glucose 113 mg/dl 94 mg/dl Calcium Level 9.3 mg/dl 7.4 mg/dl Total Bilirubin 0.6 mg/dl 0.3 mg/dl Direct Bilirubin 0.1 mg/dl Aspartate Amino Transf (AST/SGOT) 19 U/L 14 U/L Alanine Aminotransferase (ALT/SGPT) 21 U/L 15 U/L Alkaline Phosphatase 50 U/L 34 U/L Total Creatine Kinase 101 U/L Total Protein 7.9 gm/dl 5.3 gm/dl Albumin 4.1 gm/dl 2.6 gm/dl Lipase 134 U/L Estimated Average Glucose 97 mg/dl Hemoglobin A1c 5.0 % Magnesium Level 1.8 mg/dl Globulin 2.7 gm/dl Albumin/Globulin Ratio 1.0 (Lilibeth Kingston, PA-C) Assessment and Plan 21-year-old female presented to the ED with recurrent UTI and acute kidney injury. Sepsis POA 2/2 Recurrent UTI/Pyelonephritis: IMPROVING - Has been on multiple antibiotics including Bactrim and recently Cipro - current urine culture with pinpoint growth which is expected given recent antibiotics - Outpatient records reviewed - patient has a history of chlamydial infection in February 2017 - this was tested at her PCP on 04/10 and was not detected - Continue ceftriaxone 1 g IV daily - Tylenol and morphine PRN Acute Kidney Injury Possible ATN: - Creatinine mildly improved - currently 2.38 - Continue hydration of NSS at 150 mL/hour - patient is young and healthy and no evidence of volume overload - We'll continue to monitor creatinine - at this point we'll defer nephrology consultation at this time DVT Prophylaxis: - Heparin - patient has been refusing; patient is young and ambulatory and would promote this however due to pyelonephritis this can increase her risk for DVT Code Status: FULL RESUSCITATION Disposition: - 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 - Outpatient urology appointment obtained as well as PCP - Continue pain management and monitoring of kidney function - pending response possible discharge in 1-2 days Continued [facility] stay due to: multiple IV medications needed Discharge planning: home (Lilibeth Kingston, PALuisC) Reviewed: Pt Seen/Exam by Me (Marni Suresh, ) History Pt is feeling overall improved, but still with flank pain and no appetite. No further n/v but has not taken much PO. Agree with HPI/ROS as noted by PAC. (Marni Suresh, ) General Appearance: WD/WN, no apparent distress Respiratory: normal breath sounds, no respiratory distress Cardiovascular: normal peripheral pulses, regular rate, rhythm Gastrointestinal: non tender, soft Extremities: non-tender, no pedal edema Neurologic/Psychiatric: alert, normal mood/affect, oriented x 3 Skin Characteristics: normal color, warm/dry (Marni Suresh, ) Assessment/Plan Agree with plan as outlined above Pyelo with possible MDR given failure of bactrim and cipro C&S pending Renal US and CT AP show pyelo without other renal damage Monitor cr on IVF Continue IVF abx (Marni Suresh, DO)
[2017-04-16 23:27] VITALS: BP 108/62; PULSE 71; TEMP 37.2; O2SAT 99
[2017-04-17] MEDS: SODIUM CHLORIDE 0.9% 1000ML 1,000 ML IV SCH (03:04)
[2017-04-17 07:19] LABS: HEMATOCRIT 34.2 % (37-47); MEAN CELL VOLUME 92.9 fL (80-100); MEAN CORPUSCULAR HEMOGLOBIN 31.8 pg (25-34); MEAN CORPUSCULAR HGB CONC 34.2 g/dl (32-36); MEAN PLATELET VOLUME 10.1 fL (7.4-10.4); PLATELET COUNT 189 K/uL (130-400); RED BLOOD COUNT 3.68 M/uL (4.2-5.4); WHITE BLOOD COUNT 5.55 K/uL (4.8-10.8)
[2017-04-17 07:52] LABS: BUN/CREATININE RATIO 10.4 (10-20); CALCIUM 8.1 mg/dl (8.5-10.1); CREATININE 1.13 mg/dl (0.60-1.20); MAGNESIUM 1.8 mg/dl (1.8-2.4)
[2017-04-17] MEDS: HEPARIN SOD 5000 UNIT/0.5 ML CARP SQ SCH (08:00)
[2017-04-17 08:02] VITALS: BP 118/75; PULSE 60; TEMP 36.7; O2SAT 99
[2017-04-17] MEDS: FAMOTIDINE IV INJ 20 MG in SYRINGE 3 ML IV SCH (08:03)
[2017-04-17] MEDS: LACTOBACILLUS ACIDOPHILUS 1 GM PACK PO SCH (08:03)
[2017-04-17] MEDS ORDERED: CEFUROXIME AXETIL 250 MG TAB PO ONE (09:45)
--- NOTE | 2017-04-17 09:48 | Discharge Instructions ---
Discharge Instructions Date of Service Apr 17, 2017. Admission Reason for Admission: SALMA Discharge Discharge Diagnosis / Problem: Complicated UTI with Pyelonephritis Discharge Goals Goal(s): Decrease discomfort, Improve function, Increase independence Activity Recommendations Activity Limitations: resume your previous activity . Instructions / Follow-Up Instructions / Follow-Up 21-year-old female presented to the ED with recurrent UTI and acute kidney injury. Recurrent UTI/Pyelonephritis: - You will be prescribed antibiotics to complete a 14 day course. Unfortunately our culture does not show any bacteria due to recent antibiotics -- You had the first dose of the oral antibiotic today in the hospital so you will just need to take your evening dose on 04/17 then resume twice a day until complete - Recommend if UTI symptoms return to always have a urinalysis and culture with sensitivities to make sure antibiotic coverage is appropriate - You may use Tylenol for pain as well as a heating pad. Acute Kidney Injury: - Your creatinine was 2.45 on admission and currently normal at 1.13 - will give you a prescription to have your kidney function checked in the next 3-5 days and the results can go to your family doctor Follow-Up: "Please, follow up at [facility] [place] Office with Susan Weinstein Pa-C on SaturdayApril 24 at 10:00 am. *This office is located beside [facility]. If you need to change this appointment you can call the office at [phone]. Please, follow up at [facility]'s Urology office with Dr. Cedillo on SaturdayMay 15 at 1:50 pm. *This office is located at [address] [facility] in [place]. If you need to change this appointment you can call the office at [phone]." Current Hospital Diet Patient's current hospital diet: Regular Diet Discharge Diet Recommended Diet: Regular Diet Pending Studies Studies pending at discharge: no Laboratory Results Hemoglobin A1c Test 04/16/17 06:17 Range/Units Estimated Average Glucose 97 mg/dl Hemoglobin A1c 5.0 4.5-5.6 % Medical Emergencies . Who to Call and When: Medical Emergencies: If at any time you feel your situation is an emergency, please call 911 immediately. . Non-Emergent Contact Non-Emergency issues call your: Primary Care Provider Call Non-Emergent contact if: you have a fever, your pain is concerning you, you have any medication questions . . "Provider Documentation" section prepared by Lilibeth Kingston. . VTE Core Measure Inpt VTE Proph given/why not?: Unfractionated heparin SQ (Refused), Other Anticoagulation (Ambulation)
[2017-04-17] MEDS ORDERED: CFT250 PO (09:54)
[2017-04-17 10:54] VITALS: BP 118/75; PULSE 60; TEMP 36.7; O2SAT 99
--- NOTE | 2017-04-17 15:45 | Discharge Summary ---
Discharge Summary Date of Service Apr 17, 2017. Discharge Summary Admission Date: Apr 15, 2017 at 18:19 Discharge Date: Apr 17, 2017 Discharge Disposition: Home Principal Diagnosis: Pyelonephritis Problems/Secondary Diagnoses: 1. Recurrent UTIs Procedures: RETROPERITONEAL COMPLETE FINDINGS: Right kidney: Normal echogenicity. Right kidney measures 11 cm. No hydronephrosis. Small amount of free fluid adjacent to the lower pole of the right kidney. No commencing evidence of calculus or mass. Normal perfusion. Left kidney: Normal echogenicity. Left kidney measures 11 cm. No hydronephrosis. No convincing evidence of calculus or mass. Normal perfusion. Bladder: Mild circumferential bladder wall thickening suggested, allowing for underdistention. Bilateral ureteral jets not visualized. Other: None. IMPRESSION: 1. Small amount of fluid adjacent to the right kidney. Especially given the presence of mild circumference of bladder wall thickening, this could suggest pyelonephritis in the appropriate clinical setting. Correlate with urinalysis. ABD/PELVIS NO IV OR ORAL CONT FINDINGS: Leaflet Distributor topogram: Unremarkable. Lung bases: Lungs and pleural spaces clear. Normal heart size. No pericardial or pleural effusion. Liver: Normal morphology. Normal density. Biliary: No gross biliary ductal dilatation allowing for noncontrast technique. Normal gallbladder. Pancreas: Mild parenchymal atrophy. Spleen: Noncontrast. Splenule noted. Adrenal glands: Normal noncontrast appearance. Kidneys and ureters: Normal noncontrast appearance of the renal parenchyma. Mild perinephric fat stranding, right greater than left. Few punctate foci of vague hyperdensity in the left kidney may suggest developing renal calculi (for example series 3 image 116). No hydronephrosis. Ureters are nondilated, poorly visualized in their distal portions. Bladder: Mild circumferential bladder wall thickening. No perivesicular fat stranding. Multiple pelvic phleboliths. Pelvic organs: Uterus and ovaries normal. Bowel: Normal appendix. No bowel obstruction. Peritoneal cavity: No free fluid or intraperitoneal gas. Lymph nodes: No gross lymphadenopathy allowing for noncontrast technique. Vasculature: Normal noncontrast appearance. Abdominal wall: Normal. Musculoskeletal: Normal. IMPRESSION: 1. Mild perinephric fat stranding is unexpected in a patient of this age. This could relate to aggressive volume resuscitation, although pyelonephritis could also have this appearance. Suggestion of mild circumference of bladder wall thickening. Correlate with urinalysis to exclude infection. 2. No nephrolithiasis at this time, although there is suggestion of a few punctate foci of vague hyperdensity in the left kidney that may suggest developing renal calculi. No hydronephrosis. Medication Reconciliation New Medications: Cefuroxime Axetil (Cefuroxime Axetil) 250 Mg Tab 250 MG PO BID for 12 Days, #25 TAB Take one dose this evening on 04/17 then resume twice a day on 04/18 Continued Medications: Control Pills ( Control Pills) Tab 1 TAB PO DAILY, TAB Discontinued Medications: Ciprofloxacin Hcl (Cipro) 500 Mg Tab 500 MG PO BID Discharge Exam Review of Systems: Constitutional: No fever, No chills Respiratory: No shortness of breath Cardiovascular: No chest pain Abdomen: No pain, No nausea, No vomiting, No diarrhea, No constipation Musculoskeletal: No swelling, No calf pain Genitourinary - Female: + problem reported (mild suprapubic pressure - improving), No dysuria Hematologic / Lymphatic: No abnormal bleeding/bruising Physical Exam: General Appearance: WD/WN, no apparent distress Eyes: sclerae normal ENT: hearing grossly normal Neck: supple, no JVD, trachea midline Respiratory/Chest: lungs clear, normal breath sounds, no respiratory distress, no accessory muscle use Cardiovascular: regular rate, rhythm, no gallop, no murmur Abdomen / GI: normal bowel sounds, non tender, soft, + pertinent finding ( no CVA tenderness b/l) Extremities: no pedal edema Neurologic/Psychiatric: alert, oriented x 3 Skin: normal color, warm/dry Hospital Course ADMISSION: 21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 Patient had a new boyfriend that she started seeing within the last 4 months. Started 3 months ago to have recurrent urinary tract infections with symptoms suggestive of cystitis. Most recently had a UTI in the beginning of March was treated with Bactrim. After that she return to her PCP on April 10 and was giving Cipro. Yesterday patient had some occult consumption and was vomiting aggressively overnight. Today she presented to our ED with bilateral costovertebral angle pain, burning sensation in the urine, increased frequency of urination. Urine function test showed creatinine more than 2 representing acute kidney injury, no history of kidney disease in the past HOSPITAL COURSE: Ms. Vincent was admitted for Sepsis from UTI/Pyelonephritis. Patient has sustained recurrent UTIs recently. She states her initial encounter was treated with Bactrim but no culture taken. Continued to have symptoms and a UA/Cx was obtained and showed E. coli but she didn't know the sensitivities. These were both at a local [facility]. She then presented to her PCP who obtained a Cx that only showed Lactobacillus but was empirically placed on Cipro. Symptoms worsened and she was admitted. Unfortunately, Cx did not reveal growth. She appropriately responded to Ceftriaxone and will continue a 14 day course of Cefuroxime. She did have chlamydia in February 2017 but was tested at her PCP on Apr 10, 2017 and this was not detected. Question possible drug- resistance but no UA/Cx to confirm this. 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 She also presented with SALMA and was aggressively hydrated. Her creatinine was 2.45 on admission and currently 1.13. She is pain free and is afebrile. She was set up with Urology for evaluation to R/O any anatomical explanations. Total Time Spent: Greater than 30 minutes This includes examination of the patient, discharge planning, medication reconciliation, and communication with other providers. Discharge Instructions Please refer to the electronic Patient Visit Report (Discharge Instructions) for additional information. Additional Copies To Susan Weinstein .WEI; Kate Vo DO; Feliz Cedillo M.D.
== END 2017-04-17 11:10 | disposition home or self-care (01) | DRG 871 ==
LOC: C.EDB 13:00 → C.MS4W 18:19 → ENRESERV 18:28
PROVIDERS: ADMIT Internal Medicine; ATTEND Family Medicine
DX: A41.9 Sepsis, unspecified organism (principal); N12 Tubulo-interstitial nephritis, not specified as acute or chronic; N17.0 Acute kidney failure with tubular necrosis; B96.89 Other specified bacterial agents as the cause of diseases classified elsewhere; Z87.440 Personal history of urinary (tract) infections; Z16.24 Resistance to multiple antibiotics; Z83.3 Family history of diabetes mellitus; Z82.49 Family history of ischemic heart disease and other diseases of the circulatory system

== ENCOUNTER → 2017-04-24 | Outpatient (CLI) | payer OTHER ==
[~2017-04-24] MED LIST: BCPILLS PO; CFT250 PO
[2017-04-24 13:31] LABS: BLOOD UREA NITROGEN 14 mg/dl (7-18); CALCIUM 9.5 mg/dl (8.5-10.1); CARBON DIOXIDE 28 mmol/L (21-32); CREATININE 0.86 mg/dl (0.60-1.20); GLUCOSE 72 mg/dl (70-99); POTASSIUM 3.9 mmol/L (3.5-5.1); SODIUM 137 mmol/L (136-145)
--- NOTE | 2017-05-17 08:35 | CODING QUERY NO DIAGNOSIS ---
TREATMENT RENDERED WITHOUT A DIAGNOSIS 93 To promote full compliance with coding requirements relating to patient care, physician participation is requested in all cases of primary teaching assistant uncertainty. Please assist us with providing a diagnosis/symptom for the test(s) below: A diagnosis/symptom was not documented on your Order. A valid diagnosis/symptom is required to bill all insurances. Please remember that we are unable to code a diagnosis of rule out, probable, possible, questionable, or suspected. DOS 04/24/17 Tests that require a diagnosis: * PARTIAL RENAL PROFILE DIAGNOSIS: Provider Signature: Date: Thank you Madeleine Lopez [employer] Once completed, please kindly fax back to [phone] For questions please call [phone]
== END | disposition home or self-care (01) ==
LOC: C.LABPBG 10:24
PROVIDERS: ATTEND Family Medicine
DX: N17.9 Acute kidney failure, unspecified (principal)

== ENCOUNTER → 2017-05-03 | Outpatient (CLI) | payer OTHER | END | disposition home or self-care (01) | LOC: C.LABSPEC 12:52 | PROVIDERS: ATTEND Physician Assistant | DX: L29.8 Other pruritus (principal) ==

== ENCOUNTER → 2017-05-08 | Outpatient (CLI) | payer OTHER ==
[2017-05-08 17:28] LABS: BASO % 0.2 %; BASO ABS # 0.04 K/uL (0-0.2); EOS % 0.4 %; EOS ABS # 0.06 K/uL (0-0.5); HEMATOCRIT 38.6 % (37-47); IG# 0.04 K/uL (0.00-0.02); LYMPH % 9.2 %; LYMPH ABS # 1.52 K/uL (1.2-3.4); MEAN CELL VOLUME 93.5 fL (80-100); MEAN CORPUSCULAR HEMOGLOBIN 31.5 pg (25-34); MEAN CORPUSCULAR HGB CONC 33.7 g/dl (32-36); MEAN PLATELET VOLUME 10.1 fL (7.4-10.4); MONO % 7.1 %; MONO ABS # 1.18 K/uL (0.11-0.59); NEUT % 82.9 %; NEUT ABS # 13.69 K/uL (1.4-6.5); PLATELET COUNT 292 K/uL (130-400); RED CELL DISTRIBUTION WIDTH CV 12.4 % (11.5-14.5); WHITE BLOOD COUNT 16.53 K/uL (4.8-10.8)
== END | disposition home or self-care (01) ==
LOC: C.LABPBG 11:35
PROVIDERS: ATTEND Family Medicine
DX: N39.0 Urinary tract infection, site not specified (principal); N12 Tubulo-interstitial nephritis, not specified as acute or chronic

== ENCOUNTER → 2017-05-15 | Outpatient (CLI) | payer OTHER | END | disposition home or self-care (01) | LOC: C.LABSPEC 10:32 | PROVIDERS: ATTEND Urology | DX: N39.0 Urinary tract infection, site not specified (principal); N12 Tubulo-interstitial nephritis, not specified as acute or chronic ==

== ENCOUNTER 2024-01-11 18:15 | Inpatient (IN) ==
[2024-01-11] MEDS ORDERED: LIDOCAINE 1% LOCAL 20 ML VIAL INFIL PRN (18:44)
[2024-01-11] MEDS ORDERED: CALCIUM CARBONATE 500 MG CHEWABLE TAB PO PRN (18:44)
[2024-01-11] MEDS ORDERED: ESCITALOPRAM OXALATE 10 MG TAB PO SCH (18:45)
--- NOTE | 2024-01-11 18:49 | History & Physical Report ---
Date of Service January 11, 2024 Assessment & Plan (1) Supervision of normal intrauterine in primigravida: Plan: IUP at term in labor GBS-negative epidural when requested anticipate vaginal History of Present Illness Primary Care Provider: Kate Vo DO Patient is a 28 yo female EDC 01/14/24 who presents at 39 4/7 weeks in active labor. (+) bloody show and regular contractions every 2-4 minutes. uncomplicated. GBS -negative Allergies Allergy/AdvReac Type Severity Reaction Status Date / Time No Known Allergies Allergy Verified 01/09/24 12:07 Home Medications Medication Instructions Recorded Confirmed Type cholecalciferol (vitamin D3) 125 125 mcg PO DAILY 11/15/21 01/09/24 History mcg (5,000 unit) capsule escitalopram oxalate 10 mg tablet 10 mg PO .twice weekly 05/28/23 01/09/24 H istory (Lexapro) lactobacillus combination no.4 3 3,000 mmu cells PO DAILY 05/28/23 01/09/24 History billion cell capsule (Probiotic) prenat.vits,rohan,tmw-jste-bjxhq tab PO 05/28/23 01/09/24 History Patient History Medical History Hematuria Sensation of pressure in bladder area Acne H/O chlamydia infection Anemia Anxiety Surgical History S/P tooth extraction S/P foot surgery History of oral surgery Family History (Updated 05/28/23 @ 09:56 by Fabby Mccoy) Grandmother (Paternal) Diabetes type 1, controlled Myocardial infarction Father Hypertension Other Dyslipidemia Hyperthyroidism Denies family history of Ovarian cancer Prostate cancer Breast cancer Lung cancer Colorectal cancer Social History (Updated 05/28/23 @ 09:57 by Fabby Mccoy) Smoking Status: Never smoker Second Hand Exposure: No; Do You Dip or Chew Tobacco: No; Hx Alcohol Use: No Hx Substance Use: No Preferred Language: Nepali Communication Ability: Effective Visual Impairment: No Limitations Hearing Ability: Normal Beliefs That Will Affect Care: None marital status: marital status details: [place] (33) [phone] Current Living Situation: Spouse Current Living Situation Comment: lives with spouse and dog current occupational status: employed 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, [employer] Feels Safe at Home: Yes Childhood Exposure to Second-Hand Smoke: No Diet: regular Diet Comment: Regular caffeine: Yes during the past year weight has: remained stable Dental Care, Regularly: Yes Physical Activity Frequency: 3-4 Times per Week Seatbelt Use: always Sunscreen Use: Yes Review of Systems All systems reviewed & are unremarkable except as noted in HPI & below Physical Exam Constitutional: WD/WN, vitals as above Psychiatric: A+Ox3, euthymic affect Genitourinary: OB Exam Abdomen: + vertex and + regular contractions Manual OB Exam: + cervical dilation 3 cm, + cervical effacement 80% and + station -1 OB Exam Monitor Tracing: + external FHT monitor used, + external uterine monitor used, + category I and + normal FHT variability Results & Data Vital Signs (Past 12 Hours) Vital Signs Temp Pulse Resp BP 01/11/24 18:31 101 H 134/85 01/11/24 18:24 16 01/11/24 18:24 97.9 F 16 Code Status & VTE Plan VTE Prophylaxis Plan VTE Prophylaxis will be ordered: No Coding Level of Care Code 09379 INT INP/OBS CARE 40MIN Diagnoses Supervision of normal intrauterine in primigravida Z34.00
[2024-01-11] MEDS: LACTATED RINGER'S 1,000 ML IV PRN (19:07)
[2024-01-11 19:25] LABS: Hemoglobin 14.4 g/dl (12.0-16.0); Mean Corpuscular Hemoglobin 31.5 pg (25.0-34.0); Mean Corpuscular Hgb Conc 34.3 g/dL (32.0-36.0); Mean Corpuscular Volume 91.9 fL (80.0-100.0); Mean Platelet Volume 9.8 fL (9.4-12.4); Platelet Count 239 K/uL (130-400); RDW Coefficient of Variation 13.2 % (11.5-14.5); RDW Standard Deviation 44.2 fL (36.4-46.3); Red Blood Count 4.57 M/uL (4.20-5.40)
[2024-01-11] MEDS ORDERED: ONDANSETRON INJ 2 MG/ML 2 ML VIAL IV PRN (19:50)
[2024-01-11] MEDS ORDERED: ROPIVACAINE 0.5% PF 5 MG/ML 20 ML VIAL EPI PRN (19:50)
[2024-01-11] MEDS ORDERED: PROMETHAZINE 6.25 MG/50.25 ML BAG IV PRN (19:50)
[2024-01-11] MEDS ORDERED: NALOXONE HCL 0.4 MG/1 ML VIAL/CARP IV PRN (19:50)
[2024-01-11] MEDS ORDERED: NALBUPHINE HCL INJ 10 MG/ML AMP IV PRN (19:50)
[2024-01-11] MEDS ORDERED: LIDOCAINE 2% MPF LOCAL 5 ML VIAL EPI PRN (19:50)
[2024-01-11] MEDS ORDERED: BUPIVACAINE 0.25% PF 30 ML VIAL EPI PRN (19:50)
[2024-01-11] MEDS ORDERED: NALOXONE HCL 1 MG in SODIUM CHLORIDE 0.9% 1,000 ML IV PRN (19:50)
[2024-01-11] MEDS ORDERED: diphenhydrAMINE 50 MG/ML VIAL IV PRN (19:50)
[2024-01-11] MEDS ORDERED: SODIUM CHLORIDE 0.9% PF INJ 10 ML VIAL EPI PRN (19:50)
[2024-01-11] MEDS ORDERED: fentANYL 2 MCG/ML BUPIVacaine 0.125%-NSS 100ML BAG EPI PRN (19:50)
[2024-01-11] MEDS ORDERED: fentaNYL citrate PF 100 MCG/2 ML VIAL EPI PRN (19:50)
[2024-01-11] MEDS ORDERED: ePHEDrine sulfate 50 MG/ML AMP IV PRN (19:50)
--- NOTE | 2024-01-11 19:55 | Anesthesiology Consultation ---
Date of Service January 11, 2024 Assessment & Plan Chart Review Chart Review: Acceptable Risk for Surgery and Patient NOT seen in Pre Admission Testing Consults Requested none ASA ASA2 Proposed Anesthesia Anesthesia Type: Labor Epidural Risk / Benefits Reviewed With: PT / POA / Parent / Guardian, Accepts Plan and Informed Consent Obtained History Height/Weight Height: 5 ft 6 in Weight: 82.554 kg Allergies Allergy/AdvReac Type Severity Reaction Status Date / Time No Known Allergies Allergy Verified 01/09/24 12:07 Medications Home Medications Medication Instructions Recorded Confirmed Last Taken vits no.124-ferrous fum 1 tab DAILY 01/11/24 01/11/24 Unknown 27 mg iron-folic acid 800 mcg tablet ( Vitamin) Active Medications Generic Name Dose Route Start Last Admin Trade Name Freq PRN Reason Stop Dose Admin Lactated Ringer's 1,000 mls @ 125 mls/hr 01/11/24 18:44 01/11/24 19:07 Lr IV 01/13/24 18:43 999 mls/hr .Q8H PRN Administration L&D Protocol Protocol Past Medical History Medical History Hematuria Sensation of pressure in bladder area Acne H/O chlamydia infection Anemia Anxiety Exercise / Class Metabolic Activity II 4-5 Yardwork/Stairs/Walk up hill Past Family History Family History Grandmother (Paternal) Diabetes type 1, controlled Myocardial infarction Father Hypertension Mother Hypertension Grandfather (Maternal) Stroke Other Dyslipidemia Hyperthyroidism Denies family history of Ovarian cancer Prostate cancer Breast cancer Lung cancer Colorectal cancer Past Surgical History Surgical History S/P tooth extraction S/P foot surgery History of oral surgery Past Anesthesia History No Hx of Anesthesia Complications and No Family Hx of Anesthesia Complications History of PONV No Hx of PONV and No Hx of Motion Sickness Social History Smoking Status: Never smoker Do You Dip or Chew Tobacco: No Hx Alcohol Use: No Hx Substance Use: No Physical Exam Vital Signs Last Vital Signs Temp 36.7 C 01/11/24 19:07 Pulse 109 H 01/11/24 19:52 Resp 18 01/11/24 19:07 BP 131/78 01/11/24 19:52 Pulse Ox 99 01/11/24 19:51 ENMT Mouth: no dentition abnormality Thyromental Distance: > or= 3.5 Finger Breadths Mallampati Class: II Neck normal visual inspection Respiratory normal respiratory effort Auscultation: lungs clear to auscultation bilaterally Cardiovascular Rate/Rhythm: regular rate and regular rhythm Psychiatric Orientation: alert Testing Laboratory Results 01/11/24 19:07
[2024-01-11] MEDS: fentANYL 2 MCG/ML BUPIVacaine 0.125%-NSS 100ML BAG ONE (20:19)
[2024-01-11] MEDS: SODIUM CHLORIDE 0.9% PF INJ 10 ML VIAL ONE (20:22)
[2024-01-11] MEDS: BUPIVACAINE 0.25% PF 30 ML VIAL ONE (20:22)
[2024-01-11] MEDS: LIDOCAINE 2%/EPINEPHRINE 1:200,000 20 ML PF ONE (20:22)
[2024-01-11] MEDS: fentaNYL citrate PF 100 MCG/2 ML VIAL EPI STA (23:40)
[2024-01-11] MEDS: fentaNYL citrate PF 100 MCG/2 ML VIAL ONE (23:40)
[2024-01-11] MEDS: LIDOCAINE 2%/EPINEPHRINE 1:200,000 20 ML PF EPI STA (23:40)
[2024-01-11] MEDS: BUPIVACAINE 0.25% PF 30 ML VIAL EPI STA (23:40)
[2024-01-11] MEDS: ePHEDrine sulfate 50 MG/ML AMP ONE (23:40)
[2024-01-11] MEDS: SODIUM CHLORIDE 0.9% PF INJ 10 ML VIAL EPI STA (23:40)
[2024-01-12] MEDS: OXYTOCIN 30 UNITS/NSS 30 UNITS/500 ML BAG IV PRN (01:50)
[2024-01-12] MEDS ORDERED: HYDROCORTISONE ACETATE 25 MG SUPP PR PRN (02:09)
[2024-01-12] MEDS ORDERED: ACETAMINOPHEN 325 MG TAB PO PRN (02:09)
[2024-01-12] MEDS ORDERED: bisacodyL 10 MG SUPP PR PRN (02:09)
[2024-01-12] MEDS ORDERED: OXYTOCIN 30 UNITS/NSS 30 UNITS/500 ML BAG IV PRN (02:09)
[2024-01-12] MEDS ORDERED: oxyCODONE/ACETAMINOPHEN 5mg/325mg TAB PO PRN (02:09)
--- NOTE | 2024-01-12 02:27 | Delivery Summary ---
Vaginal Delivery Summary Date of Service January 12, 2024 Vaginal Delivery Summary and 2nd Degree LAC Patient is a 28-year-old primigravida who presents at 39-4/7 weeks in active labor. She requested epidural analgesia and it was effective. Membranes were ruptured for a very scant amount of amniotic fluid. She progressed to full dilation and pushed effectively to deliver a viable male over intact perineum. After the head delivered the rest of the was delivered without maternal effort. He was placed on the mother's abdomen for further attention and drying. He was vigorous crying and moving all 4 limbs. After 1 minute, the cord was clamped and cut. After cord blood was obtained, the placenta was expressed intact with a three-vessel cord. bleeding was controlled with dilute Pitocin and fundal massage. A second-degree perineal laceration was repaired with 3-0 chromic in usual fashion. QBL was 306 mL. Mother and were doing well after delivery [facility] Vaginal Delivery Charge Delivery Type Details: and 2nd Degree LAC
[2024-01-12] MEDS: BENZOCAINE 20% SPRY 85 APPLN/85 GM CAN EXT PRN (04:35)
--- NOTE | 2024-01-12 07:53 | Anesthesia Procedure Note ---
Date of Service January 12, 2024 Anesthesia Post Epidural Note Vital Signs Vital Signs: Temp Pulse Resp BP Pulse Ox O2 Del Method 36.6 C 87 16 105/64 97 Room Air 01/12/24 07:15 01/12/24 07:15 01/12/24 07:15 01/12/24 07:15 01/12/24 07:15 01/12/24 07:15 Pain Intensity Lower Back: Pain Intensity: 3 Notes Mental Status: alert / awake / arousable Nausea / Vomiting: adequately controlled Pain: adequately controlled Airway Patency, RR, SpO2: stable & adequate BP & HR: stable & adequate Hydration State: stable & adequate Neuraxial Anesthesia: was administered and sensory block is resolving Anesthetic Complications: no major complications apparent Epidural: Removed without complications and With tip intact
[2024-01-12] MEDS: PRENATAL VITAMIN 1 TAB PO SCH (08:25)
[2024-01-12] MEDS: DOCUSATE SODIUM 100 MG CAP PO SCH (08:25)
[2024-01-12] MEDS: IBUPROFEN 600 MG TAB PO PRN (13:23)
[2024-01-12] MEDS: ACETAMINOPHEN 325 MG TAB PO PRN (16:58)
[2024-01-12] MEDS: DIPHTHER/TETAN/PERTUS Vaccine (Tdap, Adol/Adult) 0.5mL IM ONE (17:59)
[2024-01-12 23:28] VITALS: O2SAT 97
[2024-01-13 04:12] VITALS: RESP 16
[2024-01-13 06:20] LABS: Hematocrit (blood only) 37.2 % (37.0-47.0); Hemoglobin 12.5 g/dl (12.0-16.0); Mean Corpuscular Hemoglobin 31.4 pg (25.0-34.0); Mean Corpuscular Hgb Conc 33.6 g/dL (32.0-36.0); Mean Corpuscular Volume 93.5 fL (80.0-100.0); Mean Platelet Volume 9.9 fL (9.4-12.4); Platelet Count 199 K/uL (130-400); RDW Coefficient of Variation 13.6 % (11.5-14.5); RDW Standard Deviation 46.1 fL (36.4-46.3); Red Blood Count 3.98 M/uL (4.20-5.40); White Blood Count 14.52 K/ul (4.8-10.8)
--- NOTE | 2024-01-13 07:09 | Obstetrical Progress Note ---
Date of Service January 13, 2024 Assessment & Plan (1) Normal delivery at term: Plan: 2nd PPD foll with with 2nd deg Lac at ter,m No high risk in ANC. No active complain. Discharge as per protocol. Admission and Anticipated Discharge Date Admission Date: January 11, 2024 Supervising Physician Co-Signing Physician Notes Resident Physician Supervision Note: I interviewed and examined the patient. Discussed with Dr. Pinto and agree with findings and plan as documented in the note. Any exceptions or clarifications are listed here: [None] Documented By: Sandy Turk MD, FACOG Subjective 2nd PPD foll with with 2nd deg Lac at term. No high risk in ANC. No active complain. Ambulation + Pee+, Gas+ Diet: Normal Ob Pain: mild Lochia: Mild Review of Systems Review of Systems: As per HPI Physical Exam Physical Exam: General: Alert and oriented. No acute distress. CV: Regular rate and rhythm. No murmurs. Respiratory: CTA bilaterally. No rhonchi, wheezes, or crackles. No increased work of breathing. Abdomen: Positive bowel sounds. Soft, nontender, non distended. Uterus: Fundus firm and palpable Montgomery between umbilicus and SP. Well contracted. Lower extremities: No LE edema. No deep calf pain. Results & Data Vital Signs (Past 12 Hours) Vital Signs Temp Pulse Resp BP Pulse Ox O2 Del Method 01/13/24 04:11 36.5 C 73 16 123/64 97 Room Air 01/12/24 23:27 36.4 C L 73 18 118/73 97 Room Air 01/12/24 19:30 Room Air 01/12/24 19:15 36.6 C 84 18 113/73 98 Room Air
[2024-01-13 08:26] VITALS: BP 112/75; TEMP 97.9
[2024-01-13 11:10] VITALS: PULSE 75
[2024-01-13] MEDS ORDERED: bisacodyL 5 MG TABEC PO SCH (20:00)
== END 2024-01-13 11:10 | disposition home or self-care (01) | DRG 807 ==
LOC: OPB 18:15 → 4S1 18:16 → 4E2 01-12 05:40